=== PATIENT | female | born 1930 | race Caucasian/White ===

== ENCOUNTER → 2016-05-14 | Outpatient (CLI) | payer MEDICARE, OTHER ==
[~2016-05-14] MED LIST: BABY ASA PO; FLAGYL250 M1 PO; GLUCOTROL XL10 MG PO; ISOSORBIDE MON120 M1 PO; LISINOPRIL20 MG PO; NAPROXEN PO; PLAVIX PO; PRAVASTATIN SOD40 MG PO
--- NOTE | ~2016-05-14 | CT57 ---
[facility] A Service of [facility] / [facility] RADIOLOGY TEXT RESULTS PATIENT: CALEB PELAYO LOCATION: [facility] : 32 UNIT #: [id number] AGE: [address]: Emir Fournier MD SEX: F ORDER DR: [id number] [place] [id number] [facility]. [place], [place] [address] [id number] O MR#: [id number] [facility] #: [id number] NAME: CALEB PELAYO : 1930 SEX: F STUDY DATE/TIME: 05/14/2016 10:20 UNIT: [facility] ROOM: STUDY DESCRIPTION: CT Chest Wo Cont Attending Physician: Emir Fournier M.D. Referring Physician: Emir Fournier M.D. Ordering Physician: Emir Fournier M.D. Primary Care Physician: Kenna Kaur M.D. MEDICAL IMAGING REPORT This report is preliminary unless electronic signature is present EXAM CT of the chest without contrast INDICATIONS 85-year-old female with history of followup pulmonary nodule. TECHNIQUE CT of the chest was performed without contrast. Coronal and sagittal reformatted images were obtained. This CT exam was performed with one or more of the following radiation dose reduction techniques: Automatic exposure control, adjustment of mA and/or kV according to patient size, and iterative reconstruction. COMPARISON 05/16/2015 FINDINGS There are stable tiny nodules bilaterally. The largest measures about 5 mm adjacent to the minor fissure. There is some bilateral lower lobe Mild atelectasis or scarring which is stable. No new nodules. No lymphadenopathy. Coronary artery calcification. Small hiatal hernia. 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 Bone windows are unremarkable. IMPRESSION Stable tiny bilateral pulmonary nodule Dictated by... Bradly Porter M.D. THIS IS AN ELECTRONICALLY VERIFIED REPORT Bradly Porter M.D. at 05/18/2016 8:[address] [facility] A Service [facility] RADIOLOGY TEXT RESULTS PATIENT: CALEB PELAYO LOCATION: [facility] : 32 UNIT #: [id number] AGE: [address]: Emir Fournier MD SEX: F ORDER DR: Hernando TD: 05/17/2016 12:59 JOB #: [id number] MEDICAL IMAGING REPORT Page 1 of 1 COPY
== END | disposition home or self-care (01) ==
LOC: CCAT 09:59
DX: R91.1 Solitary pulmonary nodule (principal)
CPT/HCPCS: 71250